=== PATIENT | female | born 1995 | race American Indian/Alaskan Native ===

== ENCOUNTER 2021-04-02 16:46 | Emergency (ER) | payer MEDICAID ==
[2021-04-02] MEDS ORDERED: ONDANSETRON 4 MG/2 ML INJ IV ONE (17:02)
[2021-04-02] MEDS ORDERED: SODIUM CHLORIDE 0.9% 1000 ML 1,000 ML IV ONE (17:02)
[2021-04-02] MEDS ORDERED: ACETAMINOPHEN 500 MG TAB PO ONE (17:04)
[2021-04-02 17:32] LABS: Hematocrit 36.3 % (30.3-42.9); Hemoglobin 11.3 gm/dl (10.1-14.3); Mean Corpuscular HGB Conc 31 % (30-34); Mean Corpuscular Volume 86 fl (79-97); Platelet Count 263 K/mm3 (140-440); Red Blood Count 4.21 M/mm3 (3.65-5.03); Red Cell Distribution Width 16.8 % (13.2-15.2)
[2021-04-02 17:49] LABS: Alanine Aminotransferase 14 units/L (7-56); Albumin 4.7 g/dL (3.9-5); Blood Urea Nitrogen 9 mg/dL (7-17); Hemolysis Index 8
[2021-04-02 17:50] LABS: BUN/Creatinine Ratio 15
[2021-04-02 20:27] LABS: Total Cells Counted 100
[2021-04-02 20:29] LABS: Anisocytosis Few; Burr Cells Rare; Ovalocytes Few; Platelet Estimate Consistent w Auto
--- NOTE | 2021-04-02 20:45 | Ultrasound Report ---
Limited OB Ultrasound HISTORY: Abdominal pain . TECHNIQUE: Grayscale and color imaging performed. COMPARISON: None FINDINGS: Uterus measures 14.1 x 5.3 x 7.2 cm. There is an intrauterine cystic structure with mean di ameter of 17 mm corresponding with an EGA of 6 weeks and 4 days. No pole identified. No yolk sa c. Gestational sac is somewhat crescentic in shape. Right ovary contains a cyst measuring 1.4 cm, likely functional. Left ovary is not seen. No significa nt pelvic free fluid. IMPRESSION: 1. Intrauterine cystic structure could represent an early gestational sac. Given the crescentic appea wolfgang as opposed to a typical normal rounded appearance, close attention on follow-up recommended. 2. Likely functional right ovarian cyst. Left ovary not seen. Signer Name: Luis Glasgow MD Signed: 04/02/2021 8:40 PM Workstation Name: [id number]
--- NOTE | 2021-04-02 21:44 | Emergency Department Report ---
ED Female HPI - General Chief complaint: Nausea/Vomiting/Diarrhea Stated complaint: NAUSEA Time Seen by Provider: 04/02/21 16:54 Source: EMS Mode of arrival: Stretcher Limitations: No Limitations - History of Present Illness Initial comments: Chief complaint: Abdominal pain vomiting HPI: 25-year-old female who is approximately 5 weeks according to LMP February 20. She has abdominal pain achy radiating to the pelvis. 7 out of 10 in severity. Nausea vomiting. No vaginal bleeding. She also had a syncopal episode at home. Arrived via EMS. Complaint: pelvic pain -: Gradual, days(s) (Several days) Severity: severe Severity scale (0 -10): 7 Quality: aching Consistency: constant Improves with: none Worsens with: none Are you Now?: Yes Last Menstrual Period: 02/20/21 EDC: 11/27/21 Associated Symptoms: nausea/vomiting, syncope, other - Related Data Previous Rx's Medication Instructions Recorded Last Taken Type HYDROcodone/APAP 5-325 [[place] 1 each PO Q6HR PRN #20 tablet 05/19/15 Unknown Rx 5/325] Ibuprofen [Motrin] 800 mg PO Q8HR PRN #60 tablet 05/19/15 Unknown Rx Bismuth Subsalicylate [Stomach 262 mg PO PRN #1 bottle 03/23/16 Unknown Rx Relief] Ciprofloxacin HCl [Ciprofloxacin 500 mg PO Q12HR #10 tab 03/23/16 Unknown Rx TAB] Doxylamine Succinate/Vit B6 2 each PO QHS #20 tablet. 03/23/16 Unknown Rx [Maciel Mijares 10-10 mg Tablet] Allergies Allergy/AdvReac Type Severity Reaction Status Date / Time No Known Allergies Allergy Verified 04/29/15 01:25 ED Review of Systems ROS: Stated complaint: NAUSEA Other details as noted in HPI Comment: All other systems reviewed and negative Constitutional: denies: chills, fever, malaise Respiratory: denies: cough, shortness of breath Gastrointestinal: abdominal pain Genitourinary: denies: abnormal menses ED Past Medical Hx - Past Medical History Previous Medical History?: No Hx Hypertension: No Hx Congestive Heart Failure: No Hx Diabetes: No Hx Deep Vein Thrombosis: No Hx Renal Disease: No Hx Sickle Cell Disease: No Hx Seizures: No Hx Asthma: No Hx COPD: No Hx HIV: No - Surgical History Past Surgical History?: No - Social History Smoking Status: Never Smoker Substance Use Type: None - Medications Home Medications: Home Medications Medication Instructions Recorded Confirmed Last Taken Type HYDROcodone/APAP 5-325 [[place] 1 each PO Q6HR PRN #20 tablet 05/19/15 Unknown Rx 5/325] Ibuprofen [Motrin] 800 mg PO Q8HR PRN #60 tablet 05/19/15 Unknown Rx Bismuth Subsalicylate [Stomach 262 mg PO PRN #1 bottle 03/23/16 Unknown Rx Relief] Ciprofloxacin HCl [Ciprofloxacin 500 mg PO Q12HR #10 tab 03/23/16 Unknown Rx TAB] Doxylamine Succinate/Vit B6 2 each PO QHS #20 tablet. 03/23/16 Unknown Rx [Maciel Mijares 10-10 mg Tablet] ED Physical Exam - General Limitations: No Limitations General appearance: alert, in no apparent distress - Head Head exam: Present: atraumatic, normocephalic - Eye Eye exam: Present: normal appearance - ENT ENT exam: Present: mucous membranes moist - Neck Neck exam: Present: normal inspection - Respiratory Respiratory exam: Present: normal lung sounds bilaterally. Absent: respiratory distress, wheezes, rales, rhonchi, stridor - Cardiovascular Cardiovascular Exam: Present: regular rate, normal rhythm, normal heart sounds. Absent: systolic murmur, diastolic murmur, rubs, gallop - GI/Abdominal GI/Abdominal exam: Present: soft, normal bowel sounds. Absent: distended, tenderness, guarding, rebound - Extremities Exam Extremities exam: Present: normal inspection - Back Exam Back exam: Present: normal inspection - Neurological Exam Neurological exam: Present: alert, oriented X3 - Psychiatric Psychiatric exam: Present: normal affect, normal mood - Skin Skin exam: Present: warm, dry, intact, normal color. Absent: rash ED Course Vital Signs 04/02/21 04/02/21 17:04 17:30 Pulse Rate 85 Respiratory 18 16 Rate Blood Pressure 108/58 [Left] O2 Sat by Pulse 98 99 Oximetry ED Medical Decision Making - Lab Data Result diagrams: 04/02/21 17:10 04/02/21 17:10 Laboratory Results - last 24 hr 04/02/21 04/02/21 04/02/21 17:10 17:10 17:10 WBC 6.9 RBC 4.21 Hgb 11.3 Hct 36.3 MCV 86 MCH 27 L MCHC 31 RDW 16.8 H Plt Count 263 Add Manual Diff Complete Total Counted 100 Seg Neutrophils % [employer] Superintendent Seg Neuts % (Manual) 88.0 H Lymphocytes % (Manual) 11.0 L Monocytes % (Manual) 1.0 Nucleated RBC % Not Reportable Seg Neutrophils # Man 6.1 Band Neutrophils # 0.0 Lymphocytes # (Manual) 0.8 L Abs React Lymphs (Man) 0.0 Monocytes # (Manual) 0.1 Eosinophils # (Manual) 0.0 Basophils # (Manual) 0.0 Metamyelocytes # 0.0 Myelocytes # 0.0 Promyelocytes # 0.0 Blast Cells # 0.0 WBC Morphology Not Reportable Hypersegmented Neuts Not Reportable Hyposegmented Neuts Not Reportable Hypogranular Neuts Not Reportable Smudge Cells Not Reportable Toxic Granulation Not Reportable Toxic Vacuolation Not Reportable Dohle Bodies Not Reportable Pelger-Huet Anomaly Not Reportable Anil Rods Not Reportable Platelet Estimate Consistent w auto Clumped Platelets Not Reportable Plt Clumps, EDTA Not Reportable Large Platelets Not Reportable Giant Platelets Not Reportable Platelet Satelliting Not Reportable Plt Morphology Comment Not Reportable RBC Morphology Not Reportable Dimorphic RBCs Not Reportable Polychromasia Not Reportable Hypochromasia Not Reportable Poikilocytosis Not Reportable Anisocytosis Few Microcytosis Not Reportable Macrocytosis Not Reportable Spherocytes Not Reportable Pappenheimer Bodies Not Reportable Sickle Cells Not Reportable Target Cells Not Reportable Tear Drop Cells Not Reportable Ovalocytes Few Helmet Cells Not Reportable [place] Bodies Not Reportable [place] Rings Not Reportable [place] Cells Rare Bite Cells Not Reportable Crenated Cell Not Reportable Elliptocytes Not Reportable Acanthocytes (Spur) Not Reportable Rouleaux Not Reportable Hemoglobin C Crystals Not Reportable Schistocytes Not Reportable Malaria parasites Not Reportable Zia Bodies Not Reportable Hem Pathologist Commnt No Sodium 137 Potassium 3.9 Chloride 102.1 Carbon Dioxide 17 L Anion Gap 22 BUN 9 Creatinine 0.6 Estimated GFR > 60 BUN/Creatinine Ratio 15 Glucose 149 H Calcium 10.0 Total Bilirubin 0.80 AST 20 ALT 14 Alkaline Phosphatase 59 Total Protein 7.4 Albumin 4.7 Albumin/Globulin Ratio 1.7 HCG, Quant 99873 H - Radiology Data Radiology results: report reviewed Patient Name: RAPHAEL CARRINGTON Gender: Female Date of : 1995 Referring Provider: LARISA RODRIGUEZ Organization: [facility] Accession Number: [id number] Requested Date: April 02, 2021 17:03 Report Status: Final Requested Procedure: 1 Procedure Description: US OB <= 14 weeks fetus Modality: US Findings Reporting MD: Luis Glasgow Dictation Time: April 02, 2021 19:40 Tank Tester: Not available Master Control Supervisor Date: Limited OB Ultrasound HISTORY: Abdominal pain . TECHNIQUE: Grayscale and color imaging performed. COMPARISON: None FINDINGS: Uterus measures 14.1 x 5.3 x 7.2 cm. There is an intrauterine cystic structure with mean diameter of 17 mm corresponding with an EGA of 6 weeks and 4 days. No pole identified. No yolk sac. Gestational sac is somewhat crescentic in shape. Right ovary contains a cyst measuring 1.4 cm, likely functional. Left ovary is not seen. No significant pelvic free fluid. IMPRESSION: 1. Intrauterine cystic structure could represent an early gestational sac. Given the crescentic appearance as opposed to a typical normal rounded appearance, close attention on follow-up recommended. 2. Likely functional right ovarian cyst. Left ovary not seen. - Medical Decision Making 1. Abdominal pain: Differential diagnosis includes early , ectopic . Considering hCG 30,000 is beyond indiscriminate zone, likely patient ectopic precautions. pseudogestational sac is a consideration. There is a cystic structure in the uterus. I have asked patient to return to the emergency department in 2 days for repeat hCG and ultrasound. 2. Vasovagal syncope suspected patient stated that she passed out without any preceding chest pain palpitations Critical care attestation.: If time is entered above; I have spent that time in minutes in the direct care of this critically ill patient, excluding procedure time. ED Disposition Clinical Impression: Abdominal pain affecting , Syncope Disposition: 01 HOME / SELF CARE / HOMELESS Is pt being admited?: No Does the pt Need Aspirin: No Condition: Stable Instructions: Abdominal Pain During , [id number], Syncope (ED) Additional Instructions: Please return to the emergency department in 2 days for repeat hCG and ultrasou nd. We must rule out ectopic . Please return sooner if you have severe pain or vaginal bleeding. Referrals: PRIMARY CARE, [Primary Care Provider] - 2-3 Days
[2021-04-03 00:15] VITALS: BP 101/54
== END 2021-04-02 22:40 | disposition home or self-care (01) ==
LOC: ED 16:46
DX: O26.891 Other specified pregnancy related conditions, first trimester (principal); R10.9 Unspecified abdominal pain; R55 Syncope and collapse; R10.2 Pelvic and perineal pain; Z3A.01 Less than 8 weeks gestation of pregnancy
CPT/HCPCS: 36415; 76801; 80053; 84702; 85007; 85025; 96361; 96374; 99284; J2405; J7030; Q0162

== ENCOUNTER 2021-04-03 10:28 | Emergency (ER) | payer MEDICAID ==
[2021-04-03 10:33] VITALS: BP 130/80
[2021-04-03] MEDS ORDERED: LACTATED RINGERS 1,000 ML IV ONE (11:33)
[2021-04-03] MEDS ORDERED: diphenhydrAMINE 50 MG/ML VIAL IV ONE (11:33)
[2021-04-03] MEDS ORDERED: METOCLOPRAMIDE 10 MG/2 ML INJ IV ONE (11:33)
[2021-04-03] MEDS ORDERED: PYRIDOXINE 50 MG TAB PO STA (11:33)
--- NOTE | 2021-04-03 11:55 | Emergency Department Report ---
ED N/V/D HPI - General Chief complaint: Nausea/Vomiting/Diarrhea Stated complaint: nausea/ vomiting Time Seen by Provider: 04/03/21 11:27 Source: patient, old records reviewed Mode of arrival: Ambulatory Limitations: No Limitations - History of Present Illness Initial comments: 25-year-old female is currently about 5 weeks based on last menstrual cycle which was February 22 presented to the ER today via EMS with complaints of nausea and vomiting. Patient states that she has been vomiting for the past 3 days and is unable to keep anything down. She was seen here last night for similar symptoms. She states that she was given medicines in the ER, felt better and was discharged home. She states that she does not recall getting any prescriptions for nausea vomiting and thought she had to wait until seeing her OB which she is scheduled to see this Friday. She states that when she got home she started again with the nausea and vomiting. She reports diffuse abdominal pain. She denies any abnormal vaginal bleeding or discharge. She did have a OB ultrasound here in the ER last night and she states she was told that they saw a sac in the uterus with no apparent fetus. Patient [facility] is going to be Dr. Pereira. She is Ab0. Reviewed visit from last night --ultrasound showed Intrauterine cystic structure could represent an early gestational sac. Given the crescentic appearance as opposed to a typical normal rounded appearance, close attention on follow-up recommended. 2. Likely functional right ovarian cyst. Left ovary not seen. Labs are unremarkable. MD complaint: nausea, vomiting, abdominal pain, other (5 weeks) -: days(s) (3) - Related Data Previous Rx's Medication Instructions Recorded Last Taken Type Ondansetron [Zofran Odt] 4 mg PO Q8HR #15 tab.rapdis 04/03/21 Unknown Rx cephALEXin [Keflex] 500 mg PO Q8HR #21 cap 04/03/21 Unknown Rx Allergies Allergy/AdvReac Type Severity Reaction Status Date / Time No Known Allergies Allergy Verified 04/03/21 10:33 ED Review of Systems ROS: Stated complaint: nausea/ vomiting Other details as noted in HPI Comment: All other systems reviewed and negative Constitutional: denies: chills, fever Eyes: denies: eye pain, eye discharge, vision change ENT: denies: ear pain, throat pain Respiratory: denies: cough, shortness of breath, SOB with exertion, SOB at rest, wheezing Cardiovascular: denies: chest pain, palpitations, dyspnea on exertion, edema, syncope, paroxysmal nocturnal dyspnea Endocrine: no symptoms reported Gastrointestinal: abdominal pain, nausea, vomiting. denies: diarrhea, constipation, hematemesis, melena, hematochezia Genitourinary: denies: urgency, dysuria, frequency, hematuria, discharge, abnormal menses, dyspareunia Musculoskeletal: denies: back pain, joint swelling, arthralgia Skin: denies: rash, lesions, change in color, change in hair/nails, pruritus Neurological: denies: headache, weakness, numbness, paresthesias, confusion, abnormal gait, vertigo Psychiatric: denies: anxiety, depression, auditory hallucinations, visual russo ucinations, homicidal thoughts, suicidal thoughts Hematological/Lymphatic: denies: easy bleeding, easy bruising, swollen glands ED Past Medical Hx - Past Medical History Hx Hypertension: No Hx Congestive Heart Failure: No Hx Diabetes: No Hx Deep Vein Thrombosis: No Hx Renal Disease: No Hx Sickle Cell Disease: No Hx Seizures: No Hx Asthma: No Hx COPD: No Hx HIV: No - Social History Smoking Status: Never Smoker Substance Use Type: None - Medications Home Medications: Home Medications Medication Instructions Recorded Confirmed Last Taken Type Ondansetron [Zofran Odt] 4 mg PO Q8HR #15 tab.rapdis 04/03/21 Unknown Rx cephALEXin [Keflex] 500 mg PO Q8HR #21 cap 04/03/21 Unknown Rx ED Physical Exam - General Limitations: No Limitations General appearance: alert, in no apparent distress, in distress (Patient appears to be uncomfortable from vomiting.) - Head Head exam: Present: atraumatic, normocephalic, normal inspection - Eye Eye exam: Present: normal appearance, PERRL, EOMI Pupils: Present: normal accommodation - ENT ENT exam: Present: normal exam, mucous membranes dry - Neck Neck exam: Present: normal inspection, full ROM. Absent: meningismus - Respiratory Respiratory exam: Present: normal lung sounds bilaterally. Absent: respiratory distress, wheezes, rales, rhonchi - Cardiovascular Cardiovascular Exam: Present: regular rate, normal rhythm, normal heart sounds - GI/Abdominal GI/Abdominal exam: Present: soft, tenderness (Mild epigastric tenderness). A bsent: distended, guarding, rebound - Neurological Exam Neurological exam: Present: alert, oriented X3, CN II-XII intact, normal gait - Psychiatric Psychiatric exam: Present: normal affect, normal mood - Skin Skin exam: Present: intact ED Course Vital Signs 04/03/21 10:32 Temperature 98.4 F Pulse Rate 85 Respiratory 18 Rate Blood Pressure 130/80 [Left] O2 Sat by Pulse 99 Oximetry ED Medical Decision Making - Lab Data Result diagrams: 04/03/21 12:04 04/03/21 12:04 - Medical Decision Making 1520: Patient reports feeling better after IV fluids, Reglan, Benadryl and vitamin B6. She was able to tolerate p.o. fluids without any vomiting during stay. Repeat abdominal exam shows a soft nontender abdomen. Labs reviewed, UA is concerning for possible UTI otherwise CBC and CMP unremarkable. [place] [address] to [address]. According to patient's visit from yesterday, she was instructed to come back tomorrow for repeat quant and repeat ultrasound to rule out ectopic. Discussed all lab results with patient, I recommend that she follows up tomorrow as she was instructed to get a repeat quant and repeat ultrasounds. Given that patient pain has much improved and she just had an ultrasound last night one would not be done today. She does have a follow-up appointment with [facility] this coming Friday. Patient expressed understanding of all instructions and agree with plan. Patient stable at time of discharge. Critical care attestation.: If time is entered above; I have spent that time in minutes in the direct care of this critically ill patient, excluding procedure time. ED Disposition Clinical Impression: Nausea and vomiting during , UTI (urinary tract infection) Disposition: HOME / SELF CARE / HOMELESS Is pt being admited?: No Does the pt Need Aspirin: No Condition: Stable Instructions: Morning Sickness, [id number], Urinary Tract Infection, Adult, [id number] Additional Instructions: I recommend taking the Zofran as prescribed for nausea and vomiting. Also recommend taking vitamin B6 which she can purchase from [id number] for nausea and vomiting. Also recommend chewing on some eduar root. You can take Tylenol as needed for pain. I do recommend that you return to to the ER tomorrow as instructed by the physician from yesterday for repeat ultrasound and quant to rule out ectopic. Return sooner if at any point your pain worsens or if you start having any significant bleeding. Prescriptions: cephALEXin [Keflex] 500 mg PO Q8HR #21 cap Ondansetron [Zofran Odt] 4 mg PO Q8HR #15 tab.rapdis Referrals: [facility] [Provider Group] - 3-5 Days Forms: Work/School Release Form(ED) Time of Disposition: 15:12
[2021-04-03 12:43] LABS: Basophils % (Auto) 0.1 % (0.0-1.8); Hematocrit 33.2 % (30.3-42.9); Hemoglobin 10.8 gm/dl (10.1-14.3); Lymphocytes # (Auto) 0.6 K/mm3 (1.2-5.4); Lymphocytes % (Auto) 8.4 % (13.4-35.0); Mean Corpuscular HGB Conc 33 % (30-34); Mean Corpuscular Volume 87 fl (79-97); Monocytes # (Auto) 0.4 K/mm3 (0.0-0.8); Monocytes % (Auto) 5.2 % (0.0-7.3); Platelet Count 242 K/mm3 (140-440); Red Cell Distribution Width 16.5 % (13.2-15.2)
[2021-04-03 13:43] LABS: BUN/Creatinine Ratio 11; Blood Urea Nitrogen 8 mg/dL (7-17); Calcium 9.1 mg/dL (8.4-10.2); Hemolysis Index 14
[2021-04-03 14:45] LABS: Bilirubin,Urine NEG (Negative); Blood,Urine NEG (Negative); Color,Urine Yellow (Yellow); Mucus,Urine 3+ /HPF
== END 2021-04-03 15:37 | disposition home or self-care (01) ==
LOC: ED 10:28
DX: O23.41 Unspecified infection of urinary tract in pregnancy, first trimester (principal); N39.0 Urinary tract infection, site not specified; O21.9 Vomiting of pregnancy, unspecified; Z3A.01 Less than 8 weeks gestation of pregnancy
CPT/HCPCS: 36415; 80048; 81001; 83735; 84702; 85025; 87086; 96361; 96374; 96375; 99283; J1200; J2765; J7120

== ENCOUNTER 2021-04-04 09:41 | Emergency (ER) | payer MEDICAID ==
[2021-04-04] MEDS ORDERED: SODIUM CHLORIDE 0.9% 1000 ML 1,000 ML IV ONE (10:05)
[2021-04-04] MEDS ORDERED: METOCLOPRAMIDE 10 MG/2 ML INJ IV ONE (10:05)
--- NOTE | 2021-04-04 10:24 | Emergency Department Report ---
ED HPI - General Chief complaint: Medical Clearance Stated complaint: PREGNACY Time Seen by Provider: 04/04/21 09:55 Source: patient Mode of arrival: Ambulatory Limitations: No Limitations - History of Present Illness Initial comments: This is a 25-year-old female nontoxic, well nourished in appearance, no acute signs of distress presents to the ED with c/o of nausea and vomiting with pelvic pain times several weeks. Patient stated was seen here emergency room several days ago and was instructed to return for a repeat ultrasound to rule out ectopic . Patient stated has a [employer] but is unable to have an appointment yet. Patient describes vomiting as food content. Patient denies any vaginal bleeding. Patient denies any upper abdominal pain, chest pain, short of breath, fever, chills, headache, stiff neck, numbness or tingling. Patient denies any diarrhea or constipation. Denies any blood in stool. Patient denies any recent travels. Patient denies any drug allergies or significant past medical history. -: week(s) Location: pelvis Radiation: none Severity: mild Severity scale (0 -10): 3 Quality: cramping, aching Consistency: constant Improves with: none Worsens with: none Associated symptoms: nausea/vomiting. denies: vaginal bleeding, vaginal discharge, abdominal pain, dysuria, headache, vision changes, malaise, dysparuenia, rash, seizure, shortness of breath, syncope, weakness Vaginal bleeding: none :: Yes Number of weeks : 5 Pre- care: followed by OB - Related Data Previous Rx's Medication Instructions Recorded Last Taken Type Ondansetron [Zofran Odt] 4 mg PO Q8HR #15 tab.rapdis 04/03/21 Unknown Rx cephALEXin [Keflex] 500 mg PO Q8HR #21 cap 04/03/21 Unknown Rx Metoclopramide [Reglan] 10 mg PO TID PRN #12 tab 04/04/21 Unknown Rx Allergies Allergy/AdvReac Type Severity Reaction Status Date / Time No Known Allergies Allergy Verified 04/03/21 10:33 ED Review of Systems ROS: Stated complaint: PREGNACY Other details as noted in HPI Comment: All other systems reviewed and negative Constitutional: denies: chills, fever Eyes: denies: eye pain, eye discharge, vision change ENT: denies: ear pain, throat pain Respiratory: denies: cough, shortness of breath, wheezing Cardiovascular: denies: chest pain, palpitations Endocrine: no symptoms reported Gastrointestinal: nausea, vomiting, other (Pelvic pain). denies: abdominal pain, diarrhea, constipation, hematemesis, melena, hematochezia Genitourinary: denies: urgency, dysuria, discharge Musculoskeletal: denies: back pain, joint swelling, arthralgia Skin: denies: rash, lesions Neurological: denies: headache, weakness, paresthesias Psychiatric: denies: anxiety, depression Hematological/Lymphatic: denies: easy bleeding, easy bruising ED Past Medical Hx - Past Medical History Hx Hypertension: No Hx Congestive Heart Failure: No Hx Diabetes: No Hx Deep Vein Thrombosis: No Hx Renal Disease: No Hx Sickle Cell Disease: No Hx Seizures: No Hx Asthma: No Hx COPD: No Hx HIV: No - Social History Smoking Status: Never Smoker Substance Use Type: None - Medications Home Medications: Home Medications Medication Instructions Recorded Confirmed Last Taken Type Ondansetron [Zofran Odt] 4 mg PO Q8HR #15 tab.rapdis 04/03/21 Unknown Rx cephALEXin [Keflex] 500 mg PO Q8HR #21 cap 04/03/21 Unknown Rx Metoclopramide [Reglan] 10 mg PO TID PRN #12 tab 04/04/21 Unknown Rx ED Physical Exam - General Limitations: No Limitations General appearance: alert, in no apparent distress - Head Head exam: Present: atraumatic, normocephalic - Eye Eye exam: Present: normal appearance - ENT ENT exam: Present: normal exam, normal orophraynx - Neck Neck exam: Present: normal inspection, full ROM. Absent: lymphadenopathy - Respiratory Respiratory exam: Present: normal lung sounds bilaterally. Absent: respiratory distress, wheezes, rales, rhonchi, stridor, chest wall tenderness, accessory muscle use, decreased breath sounds, prolonged expiratory - Cardiovascular Cardiovascular Exam: Present: regular rate, normal rhythm, normal heart sounds. Absent: bradycardia, tachycardia, irregular rhythm, systolic murmur, diastolic murmur, rubs, gallop - GI/Abdominal GI/Abdominal exam: Present: soft, normal bowel sounds. Absent: distended, tenderness, guarding, rebound, rigid, diminished bowel sounds - Extremities Exam Extremities exam: Present: full ROM - Back Exam Back exam: Present: normal inspection, full ROM. Absent: tenderness, CVA tenderness (R), CVA tenderness (L), muscle spasm, paraspinal tenderness, vertebral tenderness, rash noted - Neurological Exam Neurological exam: Present: alert, oriented X3, normal gait - Psychiatric Psychiatric exam: Present: normal affect, normal mood - Skin Skin exam: Present: warm, dry, intact, normal color. Absent: rash ED Course Vital Signs 04/04/21 09:45 Temperature 98.1 F Pulse Rate 59 L Respiratory 17 Rate Blood Pressure 126/84 O2 Sat by Pulse 100 Oximetry - Reevaluation(s) Reevaluation #1: 04/04/21 10:24 Patient is speaking in full sentences with no signs of distress noted. ED Medical Decision Making - Lab Data Result diagrams: 04/04/21 10:05 04/04/21 10:05 - Radiology Data ULTRASOUND OBSTETRIC REASON FOR EXAM: pelvic pain TECHNIQUE: Transabdominal and transvaginal ultrasound was performed to evaluate a first trimester . COMPARISON: 04/02/2021. FINDINGS: FINDINGS: The pole, yolk sac, and gestational sac are normal in appearance. [place]-rump length: 3 mm. This corresponds with a gestational age of 5 weeks 6 days. heart rate: 107 bpm Perigestational hemorrhage: No evidence of perigestational hemorrhage on the provided images. MATERNAL FINDINGS: There is suggestion of uterine fibroids. Uterus demonstrates an otherwise unremarkable sonographic appearance. The right ovary demonstrates a normal sonographic appearance. The left ovary demonstrates a normal sonographic appearance. Cul-de-sac: There is no free fluid. IMPRESSION: 1. Viable intrauterine . Gestational age is 5 weeks 6 days by ultrasound. Recommend clinical screening and ultrasound follow-up in the second trimester to screen for anomalies. 2. Borderline bradycardia, measuring 107 bpm. Recommend close clinical surveillance. Signer Name: Greg Ross MD Signed: 04/04/2021 10:20 AM Workstation Name: [id number] ULTRASOUND OBSTETRIC REASON FOR EXAM: pelvic pain TECHNIQUE: Transabdominal and transvaginal ultrasound was performed to evaluate a first trimester . COMPARISON: 04/02/2021. FINDINGS: FINDINGS: The pole, yolk sac, and gestational sac are normal in appearance. [place]-rump length: 3 mm. This corresponds with a gestational age of 5 weeks 6 days. heart rate: 107 bpm Perigestational hemorrhage: No evidence of perigestational hemorrhage on the provided images. MATERNAL FINDINGS: There is suggestion of uterine fibroids. Uterus demonstrates an otherwise unremarkable sonographic appearance. The right ovary demonstrates a normal sonographic appearance. The left ovary demonstrates a normal sonographic appearance. Cul-de-sac: There is no free fluid. IMPRESSION: 1. Viable intrauterine . Gestational age is 5 weeks 6 days by ultrasound. Recommend clinical screening and ultrasound follow-up in the second trimester to screen for anomalies. 2. Borderline bradycardia, measuring 107 bpm. Recommend close clinical surveillance. Signer Name: Greg Ross MD Signed: 04/04/2021 10:20 AM Workstation Name: [id number] - Medical Decision Making This is a 25-year-old female that presents with hyperemesis. Patient is stable and was examined by me. There is no abdominal tenderness. Negative signs of symptoms of appendicitis, cholecystitis or acute abdomen. Labs obtained. UA obtained. OB ultrasound obtained and dictated by the radiologist. Patient is notified of the report with no questions noted by the patient. Vital signs are stable prior to discharge. Patient received Reglan and 1L Normal saline in the ED which patient stated symptoms has resovled and subsided. A by mouth challenge has been obtained and patient tolerated well with no nausea vomiting. Patient was also instructed to Follow-up with a [employer] doctor in 3-5 days or if symptoms worsen and continue return to emergency room as soon as possible. At time of discharge, the patient does not seem toxic or ill in appearance. No acute signs of distress noted. Patient agrees to discharge treatment plan of care. No further questions noted by the patient. Critical care attestation.: If time is entered above; I have spent that time in minutes in the direct care of this critically ill patient, excluding procedure time. ED Disposition Clinical Impression: Hyperemesis gravidarum, Pelvic pain during Disposition: 01 HOME / SELF CARE / HOMELESS Is pt being admited?: No Does the pt Need Aspirin: No Condition: Stable Additional Instructions: Follow-up with a [employer] doctor in 3-5 days or if symptoms worsen and continue return to emergency room as soon as possible. Prescriptions: Metoclopramide [Reglan] 10 mg PO TID PRN #12 tab PRN Reason: Nausea Referrals: PRIMARY CARE, [Primary Care Provider] - 3-5 Days [facility] [Provider Group] - 3-5 Days [facility] [Provider Group] - 3-5 Days Forms: Work/School Release Form(ED) Time of Disposition: 13:28
[2021-04-04 11:31] LABS: Basophils % (Auto) 0.3 % (0.0-1.8); Eosinophils % (Auto) 0.1 % (0.0-4.3); Hematocrit 34.1 % (30.3-42.9); Hemoglobin 10.8 gm/dl (10.1-14.3); Lymphocytes # (Auto) 0.6 K/mm3 (1.2-5.4); Lymphocytes % (Auto) 12.6 % (13.4-35.0); Mean Corpuscular HGB Conc 32 % (30-34); Mean Corpuscular Volume 86 fl (79-97); Monocytes # (Auto) 0.2 K/mm3 (0.0-0.8); Monocytes % (Auto) 4.1 % (0.0-7.3); Platelet Count 224 K/mm3 (140-440); Red Blood Count 3.97 M/mm3 (3.65-5.03); Red Cell Distribution Width 15.9 % (13.2-15.2)
[2021-04-04 11:46] LABS: Alanine Aminotransferase 19 units/L (7-56); Albumin 4.3 g/dL (3.9-5); Blood Urea Nitrogen 9 mg/dL (7-17); Calcium 9.1 mg/dL (8.4-10.2); Hemolysis Index 134
[2021-04-04 11:48] LABS: BUN/Creatinine Ratio 18
[2021-04-04 12:26] LABS: Bilirubin,Urine NEG (Negative); Blood,Urine NEG (Negative); Color,Urine Yellow (Yellow); Mucus,Urine 3+ /HPF
[2021-04-04 13:39] VITALS: BP 122/74
--- NOTE | 2021-04-05 07:37 | Ultrasound Report ---
ULTRASOUND OBSTETRIC REASON FOR EXAM: pelvic pain TECHNIQUE: Transabdominal and transvaginal ultrasound was performed to evaluate a first trimester pre gnancy. COMPARISON: 04/02/2021. FINDINGS: FINDINGS: The pole, yolk sac, and gestational sac are normal in appearance. [place]-rump length: 3 mm. This corresponds with a gestational age of 5 weeks 6 days. heart rate: 107 bpm Perigestational hemorrhage: No evidence of perigestational hemorrhage on the provided images. MATERNAL FINDINGS: There is suggestion of uterine fibroids. Uterus demonstrates an otherwise unremarkable sonographic ap pearance. The right ovary demonstrates a normal sonographic appearance. The left ovary demonstrates a normal sonographic appearance. Cul-de-sac: There is no free fluid. IMPRESSION: 1. Viable intrauterine . Gestational age is 5 weeks 6 days by ultrasound. Recommend clinical screening and ultrasound follow-up in the second trimester to screen for anomalies. 2. Borderline bradycardia, measuring 107 bpm. Recommend close clinical surveillance. Signer Name: Greg Ross MD Signed: 04/04/2021 11:20 AM Workstation Name: [id number]
--- NOTE | 2021-04-05 07:37 | Ultrasound Report ---
ULTRASOUND OBSTETRIC REASON FOR EXAM: pelvic pain TECHNIQUE: Transabdominal and transvaginal ultrasound was performed to evaluate a first trimester pre gnancy. COMPARISON: 04/02/2021. FINDINGS: FINDINGS: The pole, yolk sac, and gestational sac are normal in appearance. [place]-rump length: 3 mm. This corresponds with a gestational age of 5 weeks 6 days. heart rate: 107 bpm Perigestational hemorrhage: No evidence of perigestational hemorrhage on the provided images. MATERNAL FINDINGS: There is suggestion of uterine fibroids. Uterus demonstrates an otherwise unremarkable sonographic ap pearance. The right ovary demonstrates a normal sonographic appearance. The left ovary demonstrates a normal sonographic appearance. Cul-de-sac: There is no free fluid. IMPRESSION: 1. Viable intrauterine . Gestational age is 5 weeks 6 days by ultrasound. Recommend clinical screening and ultrasound follow-up in the second trimester to screen for anomalies. 2. Borderline bradycardia, measuring 107 bpm. Recommend close clinical surveillance. Signer Name: Greg Ross MD Signed: 04/04/2021 11:20 AM Workstation Name: [id number]
== END 2021-04-04 13:36 | disposition home or self-care (01) ==
LOC: ED 09:41
DX: O21.0 Mild hyperemesis gravidarum (principal); O26.891 Other specified pregnancy related conditions, first trimester; R10.2 Pelvic and perineal pain; Z3A.01 Less than 8 weeks gestation of pregnancy
CPT/HCPCS: 36415; 76801; 76817; 80053; 81001; 84702; 85025; 96361; 96374; 99284; J2765; J7030; Q0162